=== PATIENT | female | born 1955 | race Caucasian/White ===

== ENCOUNTER → 2016-10-05 | Outpatient (CLI) | payer BC | LOC: MC.RAD 12:54 | DX: Z12.31 Encounter for screening mammogram for malignant neoplasm of breast (principal); Z80.3 Family history of malignant neoplasm of breast ==

== ENCOUNTER → 2017-10-08 | Outpatient (CLI) | payer BC | LOC: MC.RAD 13:20 | DX: Z12.31 Encounter for screening mammogram for malignant neoplasm of breast (principal) ==

== ENCOUNTER → 2018-11-26 | Outpatient (CLI) | payer BC | LOC: MC.RAD 14:36 | DX: Z12.31 Encounter for screening mammogram for malignant neoplasm of breast (principal) ==

== ENCOUNTER 2019-05-26 13:02 | Outpatient (CLI) | payer BC ==
[~2019-05-26] VITALS: Ht 165.1 cm; Wt 56.8 kg
[2019-05-26 13:18] VITALS: BP 130/84; PULSE 71; TEMP 97.9
[2019-05-26] MEDS ORDERED: ZOCOR 40MG40 MG PO (13:34)
[2019-05-26] MEDS ORDERED: SYNTHROID0.05 MG/TA PO (13:34)
== END 2019-05-26 13:52 | disposition home or self-care (01) ==
LOC: EUO 13:02
DX: M81.0 Age-related osteoporosis without current pathological fracture (principal)
CPT/HCPCS: J0897

== ENCOUNTER 2019-11-27 13:02 | Outpatient (CLI) | payer BC ==
[~2019-11-27] VITALS: Ht 165.1 cm; Wt 57.0 kg
[~2019-11-27 13:02] MED LIST: SYNTHROID0.05 MG/TA PO; ZOCOR 40MG40 MG PO
[2019-11-27 13:35] VITALS: BP 123/77; PULSE 78; TEMP 98.2
== END 2019-11-27 13:37 | disposition home or self-care (01) ==
LOC: EUO 13:02
DX: M81.0 Age-related osteoporosis without current pathological fracture (principal)
CPT/HCPCS: J0897

== ENCOUNTER → 2019-12-10 | Outpatient (CLI) | payer BC | LOC: MC.RAD 15:18 | DX: Z12.31 Encounter for screening mammogram for malignant neoplasm of breast (principal); N64.89 Other specified disorders of breast ==

== ENCOUNTER → 2019-12-18 | Outpatient (CLI) | payer BC | LOC: MC.RAD 11:10 | DX: N64.89 Other specified disorders of breast (principal); N60.81 Other benign mammary dysplasias of right breast | CPT/HCPCS: G0279 ==

== ENCOUNTER → 2020-06-29 | Outpatient (CLI) | payer BC | LOC: MC.RAD 13:00 | DX: N63.10 Unspecified lump in the right breast, unspecified quadrant (principal); N64.59 Other signs and symptoms in breast ==

== ENCOUNTER → 2020-12-23 | Outpatient (CLI) | payer BC | LOC: MC.RAD 13:24 | DX: Z12.31 Encounter for screening mammogram for malignant neoplasm of breast (principal) ==

== ENCOUNTER → 2024-02-01 | Outpatient (CLI) | payer MEDICARE, BC ==
[~2024-02-01] MED LIST changes: +PROLIA60 MG/ML SQ; +VITAMIND3 5000 PO
== END ==
LOC: MC.RAD 09:48
DX: Z12.31 Encounter for screening mammogram for malignant neoplasm of breast (principal)